=== PATIENT | female | born 1985 | race Caucasian/White ===

== ENCOUNTER → 2021-07-05 | Day surgery (SDC) | payer BC ==
[~2021-07-05] VITALS: Ht 162.6 cm; Wt 95.3 kg
[~2021-07-05] MED LIST: ACET-2708 PO; BUPIVACAINE HCL/PF 0.25% (2.5MG/ML) 10ML ONE; GLYCOPYRROLATE 0.2 MG/ML 2ML VIAL ONE; HYDROMORPHONE HCL/PF 2MG/ML (OR) ONE; LABETALOL 5MG/ML SYR 20 MG/4 ML SYRINGE IV PRN; LACTATED RINGERS 1,000 ML IV SCH; MEPERIDINE HCL/PF 25MG/ML CPJ IV PRN; MULT-1116 PO; ONDANSETRON HCL 4MG/2ML INJ IV PRN; ROCURONIUM BROMIDE 10MG/ML VIAL 5ML IV ONE; SKIN ADHESIVE 0.7 GM EA TOP ONE; VASOPRESSIN 20 UNIT/ML 1ML ONE
[2021-07-05 07:42] LABS: BASOPHILS % 0.9 % (0.0-2.0); EOSINOPHILS % 9.5 % (0.0-5.0); HEMATOCRIT. 33.4 % (36.0-48.0); HEMOGLOBIN. 10.7 g/dL (12.0-16.0); LYMPHOCYTES % 31.1 % (20.0-50.0); MEAN CORPUSCULAR HEMOGLOBIN 22.4 pg (28.0-32.0); MEAN CORPUSCULAR VOLUME 70.1 fL (81.0-99.0); MEAN PLATELET VOLUME 9.6 fl (7.4-10.4); MONOCYTES % 6.9 % (2.0-8.0); NEUTROPHILS % 51.6 % (40.0-76.0); PLATELET 226 x1000/uL (130-400); RED BLOOD CELL COUNT 4.76 mill/uL (4.2-5.4); RED CELL DISTRIBUTION WIDTH 15.3 % (11.6-14.6)
[2021-07-05 07:42] LABS: CLARITY URINE CLEAR (CLEAR); COLOR URINE YELLOW (YELLOW); KETONES URINE NEGATIVE (NEGATIVE); LEUKOCYTE ESTERASE URINE 2+ (NEGATIVE); NITRITE URINE NEGATIVE (NEGATIVE); OCCULT BLOOD URINE NEGATIVE (NEGATIVE); PROTEIN URINE NEGATIVE (NEGATIVE); SPECIFIC GRAVITY URINE 1.028 (1.005-1.030)
[2021-07-05 07:47] LABS: CHLORIDE 108 mEq/L (98-107)
[2021-07-05 07:51] LABS: INR 1.1; PARTIAL THROMBOPLASTIN TIME 32.4 sec (23.4-31.0)
[2021-07-05 08:03] LABS: UCG SCREEN NEGATIVE
[2021-07-05] MEDS: HYDROMORPHONE HCL/PF 2MG/ML CPJ IV PRN ×3 (15:25→15:49)
[2021-07-05 15:49] VITALS: BP 124/67
== END | disposition home or self-care (01) ==
LOC: OR 06:59
PROVIDERS: ATTEND Obstetrics & Gynecology Obstetrics
DX: N93.8 Other specified abnormal uterine and vaginal bleeding (principal); N84.0 Polyp of corpus uteri; E11.9 Type 2 diabetes mellitus without complications; K21.9 Gastro-esophageal reflux disease without esophagitis; F32.9 Major depressive disorder, single episode, unspecified; Z79.899 Other long term (current) drug therapy; Z98.890 Other specified postprocedural states
CPT/HCPCS: 36415; 58562; 58662; 80048; 81003; 81025; 85025; 85610; 85730; 87426; 88300; 88305; C1725; J1170; J2405; J3490

== ENCOUNTER 2021-07-06 11:38 | Emergency (ER) | payer BC, MEDICAID ==
[~2021-07-06] VITALS: Ht 172.7 cm; Wt 77.0 kg
[~2021-07-06 11:38] MED LIST changes: -BUPIVACAINE HCL/PF 0.25% (2.5MG/ML) 10ML ONE; -GLYCOPYRROLATE 0.2 MG/ML 2ML VIAL ONE; -HYDROMORPHONE HCL/PF 2MG/ML (OR) ONE; -LABETALOL 5MG/ML SYR 20 MG/4 ML SYRINGE IV PRN; -LACTATED RINGERS 1,000 ML IV SCH; -MEPERIDINE HCL/PF 25MG/ML CPJ IV PRN; -ONDANSETRON HCL 4MG/2ML INJ IV PRN; -ROCURONIUM BROMIDE 10MG/ML VIAL 5ML IV ONE; -SKIN ADHESIVE 0.7 GM EA TOP ONE; -VASOPRESSIN 20 UNIT/ML 1ML ONE
[2021-07-06] MEDS ORDERED: MORPHINE SULFATE 4 MG/ML CPJ (NOT FOR IM USE) IV ONE ×2 (12:15→15:15)
[2021-07-06] MEDS ORDERED: ONDANSETRON HCL 4MG/2ML INJ IV ONE (12:15)
[2021-07-06 12:22] LABS: BASOPHILS % 0.5 % (0.0-2.0); EOSINOPHILS % 0.9 % (0.0-5.0); HEMATOCRIT. 33.5 % (36.0-48.0); HEMOGLOBIN. 10.7 g/dL (12.0-16.0); MEAN CORPUSCULAR HEMOGLOBIN 22.2 pg (28.0-32.0); MEAN CORPUSCULAR VOLUME 69.4 fL (81.0-99.0); MEAN PLATELET VOLUME 10.1 fl (7.4-10.4); MONOCYTES % 10.5 % (2.0-8.0); NEUTROPHILS % 65.1 % (40.0-76.0); PLATELET 246 x1000/uL (130-400); RED BLOOD CELL COUNT 4.82 mill/uL (4.2-5.4); RED CELL DISTRIBUTION WIDTH 15.7 % (11.6-14.6)
[2021-07-06 12:36] LABS: CHLORIDE 106 mEq/L (98-107)
[2021-07-06 12:47] LABS: B-HCG QUANTITATIVE < 1 mIU/mL (<3)
[2021-07-06] MEDS ORDERED: MECLIZINE 25MG TABLET PO ONE (13:00)
[2021-07-06 13:10] LABS: PLATELET ESTIMATE NORMAL
[2021-07-06 14:48] LABS: CLARITY URINE CLEAR (CLEAR); COLOR URINE YELLOW (YELLOW); KETONES URINE TRACE (NEGATIVE); LEUKOCYTE ESTERASE URINE NEGATIVE (NEGATIVE); NITRITE URINE NEGATIVE (NEGATIVE); OCCULT BLOOD URINE 3+ (NEGATIVE); PH URINE 5.5 (4.5-8.0); PROTEIN URINE 1+ (NEGATIVE); SPECIFIC GRAVITY URINE 1.096 (1.005-1.030)
[2021-07-06] MEDS ORDERED: IOHEXOL-300 100 ML BOTTLE ONE (15:05)
[2021-07-06] MEDS ORDERED: KETOROLAC 15MG/ML VIAL IV ONE (16:45)
[2021-07-06 18:29] VITALS: BP 135/75
== END 2021-07-06 18:30 | disposition home or self-care (01) ==
LOC: ER 11:38
DX: N73.3 Female acute pelvic peritonitis (principal); N93.8 Other specified abnormal uterine and vaginal bleeding; Z98.890 Other specified postprocedural states; Z90.49 Acquired absence of other specified parts of digestive tract
CPT/HCPCS: 36415; 74177; 80053; 81003; 83690; 84484; 84702; 85025; 93005; 96374; 96375; 96376; 99285; J1885; J2270; J2405; Q9967; J8597

== ENCOUNTER 2022-01-24 06:49 | Inpatient (IN) | payer BC ==
[~2022-01-24] VITALS: Ht 162.6 cm; Wt 101.6 kg
[2022-01-24] MEDS ORDERED: SODIUM CHLORIDE 0.9% 1,000 ML IV SCH (07:45)
[2022-01-24 07:47] LABS: CLARITY URINE CLEAR (CLEAR); COLOR URINE YELLOW (YELLOW); KETONES URINE NEGATIVE (NEGATIVE); LEUKOCYTE ESTERASE URINE 3+ (NEGATIVE); NITRITE URINE NEGATIVE (NEGATIVE); OCCULT BLOOD URINE 3+ (NEGATIVE); PH URINE 7.5 (4.5-8.0); PROTEIN URINE NEGATIVE (NEGATIVE); SPECIFIC GRAVITY URINE 1.017 (1.005-1.030)
[2022-01-24 08:04] LABS: BASOPHILS % 1.1 % (0.0-2.0); HEMATOCRIT. 33.8 % (36.0-48.0); HEMOGLOBIN. 10.7 g/dL (12.0-16.0); LYMPHOCYTES % 32.3 % (20.0-50.0); MEAN CORPUSCULAR HEMOGLOBIN 22.6 pg (28.0-32.0); MEAN CORPUSCULAR VOLUME 71.1 fL (81.0-99.0); MEAN PLATELET VOLUME 10.1 fl (7.4-10.4); MONOCYTES % 6.5 % (2.0-8.0); NEUTROPHILS % 50.1 % (40.0-76.0); PLATELET 208 x1000/uL (130-400); RED BLOOD CELL COUNT 4.75 mill/uL (4.2-5.4); RED CELL DISTRIBUTION WIDTH 16.3 % (11.6-14.6)
[2022-01-24 08:08] LABS: UCG SCREEN NEGATIVE
[2022-01-24 08:17] LABS: CHLORIDE 106 mEq/L (98-107)
[2022-01-24 08:30] LABS: INR 1.1; PARTIAL THROMBOPLASTIN TIME 33.6 sec (23.4-31.0); PROTHROMBIN TIME 11.9 sec (9.6-11.0)
[2022-01-24] MEDS ORDERED: VASOPRESSIN 20 UNIT/ML 1ML ONE (10:03)
[2022-01-24] MEDS ORDERED: MIDAZOLAM HCL 2 MG/2 ML VIAL ONE (10:47)
[2022-01-24] MEDS ORDERED: PROPOFOL 200MG/20ML VIAL IV ONE (10:47)
[2022-01-24] MEDS ORDERED: ROCURONIUM BROMIDE 10MG/ML VIAL 5ML IV ONE ×2 (11:11→12:12)
[2022-01-24] MEDS ORDERED: FENTANYL CITRATE/PF 50MCG/ML 2ML VIAL ONE ×2 (11:38→12:11)
[2022-01-24] MEDS ORDERED: ONDANSETRON HCL 4MG/2ML INJ ONE (12:11)
[2022-01-24] MEDS ORDERED: CEFAZOLIN SODIUM 1000MG/VIAL ONE (12:11)
[2022-01-24] MEDS ORDERED: DEXAMETHASONE 4MG/ML 1ML VIAL ONE (12:11)
[2022-01-24] MEDS ORDERED: GLYCOPYRROLATE 0.2 MG/ML 2ML VIAL ONE (12:11)
[2022-01-24] MEDS ORDERED: SUCCINYLCHOLINE CHLORIDE 200MG/10ML IV ONE (12:12)
[2022-01-24] MEDS ORDERED: NEOSTIGMINE METHYLSULFATE 1MG/ML 10 ML VIAL ONE (12:12)
[2022-01-24] MEDS ORDERED: HYDROMORPHONE HCL/PF 2MG/ML CPJ IV PRN (12:15)
[2022-01-24] MEDS ORDERED: ATROPINE SULFATE 0.4MG/ML VIAL IV PRN (12:15)
[2022-01-24] MEDS ORDERED: FENTANYL CITRATE/PF 50MCG/ML 2ML VIAL IV PRN (12:15)
[2022-01-24] MEDS ORDERED: LIDOCAINE HCL 1% 50ML VIAL (10MG/ML) ONE (13:28)
[2022-01-24] MEDS ORDERED: SKIN ADHESIVE 0.7 GM EA TOP ONE (13:58)
[2022-01-24] MEDS: HYDROMORPHONE HCL/PF 2MG/ML CPJ IV PRN ×5 (14:47→22:01)
[2022-01-24] MEDS ORDERED: LACTATED RINGERS 1,000 ML IV SCH (15:45)
[2022-01-24 16:45] VITALS: BP 119/68
[2022-01-24] MEDS: DOCUSATE SODIUM 100MG CAPSULE PO SCH (17:45)
[2022-01-24 20:00] VITALS: BP 128/73
[2022-01-24] MEDS: ONDANSETRON HCL 4MG/2ML INJ IV PRN (20:06)
[2022-01-25] VITALS: BP 102/58
[2022-01-25 04:00] VITALS: BP 131/75
[2022-01-25] MEDS ORDERED: PROCHLORPERAZINE MALEATE 25MG SUPP PR PRN (04:00)
[2022-01-25] MEDS: TRAMADOL 50MG TABLET PO PRN (04:41)
[2022-01-25] MEDS: ONDANSETRON HCL 4MG/2ML INJ IV PRN ×2 (05:21→17:56)
[2022-01-25 08:00] VITALS: BP 125/68
[2022-01-25] MEDS ORDERED: NALOXONE HCL 0.4MG/ML VIAL IV PRN (08:15)
[2022-01-25] MEDS: DOCUSATE SODIUM 100MG CAPSULE PO SCH (09:00)
[2022-01-25] MEDS ORDERED: MORPHINE SULFATE 2 MG/ML CPJ (NOT FOR IM USE) IV PRN (11:15)
[2022-01-25] MEDS ORDERED: DEXT 5%/0.9% NACL 1,000 ML IV SCH (11:15)
[2022-01-25] MEDS ORDERED: ACETAMINOPHEN 325MG TABLET ONE (11:36)
[2022-01-25 12:00] VITALS: BP 124/70
[2022-01-25] MEDS: ACETAMINOPHEN 325MG TABLET PO PRN ×2 (12:08→23:46)
[2022-01-25 12:26] LABS: BASOPHILS % 0.3 % (0.0-2.0); EOSINOPHILS % 0.3 % (0.0-5.0); HEMATOCRIT. 30.1 % (36.0-48.0); HEMOGLOBIN. 9.6 g/dL (12.0-16.0); LYMPHOCYTES % 17.6 % (20.0-50.0); MEAN CORPUSCULAR HEMOGLOBIN 22.9 pg (28.0-32.0); MEAN CORPUSCULAR VOLUME 71.7 fL (81.0-99.0); MEAN PLATELET VOLUME 10.9 fl (7.4-10.4); MONOCYTES % 8.4 % (2.0-8.0); NEUTROPHILS % 73.4 % (40.0-76.0); PLATELET 218 x1000/uL (130-400); RED CELL DISTRIBUTION WIDTH 15.8 % (11.6-14.6)
[2022-01-25 16:00] VITALS: BP 117/63
[2022-01-25 20:00] VITALS: BP 124/70
[2022-01-26] MEDS: ACETAMINOPHEN 325MG TABLET PO PRN (07:06)
[2022-01-26 08:00] VITALS: BP 124/83
[2022-01-26] MEDS: DOCUSATE SODIUM 100MG CAPSULE PO SCH (09:24)
[2022-01-26] MEDS: ONDANSETRON HCL 4MG/2ML INJ IV PRN (09:24)
[2022-01-26] MEDS: TRAMADOL 50MG TABLET PO PRN (11:32)
[2022-01-26 12:00] VITALS: BP 129/70
[2022-01-26 16:00] VITALS: BP 148/82
[2022-01-26 16:01] VITALS: BP 129/70
== END 2022-01-26 16:30 | disposition home or self-care (01) | DRG 743 ==
LOC: OR 06:49 → 6EST 17:03
PROVIDERS: ADMIT Obstetrics & Gynecology Obstetrics; ATTEND Obstetrics & Gynecology Obstetrics
PROC: 0UT9FZZ Resection of Uterus, Via Natural or Artificial Opening With Percutaneous Endoscopic Assistance (ICD-10-PCS; principal; 2022-01-24)
PROC: 0UT7FZZ Resection of Bilateral Fallopian Tubes, Via Natural or Artificial Opening With Percutaneous Endoscopic Assistance (ICD-10-PCS; 2022-01-24)
DX: N80.329 Endometriosis of the posterior cul-de-sac, unspecified depth (principal); N93.8 Other specified abnormal uterine and vaginal bleeding; R10.2 Pelvic and perineal pain; Z20.822 Contact with and (suspected) exposure to COVID-19; Z90.710 Acquired absence of both cervix and uterus
CPT/HCPCS: 36415; 80048; 81003; 81025; 85025; 86850; 86900; 86920; 87426; 88307; C9803; J0330; J0690; J1100; J1170; J2250; J2270; J2405; J2704; J2710; J3010; J3490

== ENCOUNTER → 2023-10-24 | Outpatient (CLI) | payer BC | END | disposition home or self-care (01) | LOC: MAMMO 14:09 | PROVIDERS: ATTEND Family Medicine | DX: S59.802A Other specified injuries of left elbow, initial encounter (principal); R92.333 Mammographic heterogeneous density, bilateral breasts; R92.1 Mammographic calcification found on diagnostic imaging of breast; N64.4 Mastodynia; X58.XXXA Exposure to other specified factors, initial encounter; Y92.89 Other specified places as the place of occurrence of the external cause; Y93.89 Activity, other specified; Y99.8 Other external cause status | CPT/HCPCS: 73080; 76642; 77062; 77066; G0279 ==